=== PATIENT | female | born 2005 | race Caucasian/White ===

== ENCOUNTER 2023-01-28 17:46 | Emergency (ER) | payer OTHER ==
[~2023-01-28] VITALS: Ht 157.5 cm; Wt 59.1 kg
[2023-01-28 17:54] VITALS: BP 124/77; TEMP 98.8
[2023-01-28] MEDS ORDERED: FLEXERIL5 MG PO (18:50)
[2023-01-28 19:06] VITALS: PULSE 67
== END 2023-01-28 19:06 | disposition home or self-care (01) ==
LOC: COL.ER 17:46
DX: M62.830 Muscle spasm of back (principal); R51.9 Headache, unspecified